=== PATIENT | female | born 2000 | race Two or more races ===

== ENCOUNTER 2018-01-12 02:53 | Inpatient (IN) | payer BC ==
[~2018-01-12] VITALS: Ht 160 cm; Wt 46.9 kg
[2018-01-12 03:27] LABS: BASOPHILS % (AUTO) 0.6 % (0.0-2.0); EOSINOPHILS % (AUTO) 0.4 % (1.0-6.0); HEMATOCRIT 38.5 % (36-46); HEMOGLOBIN 13.6 g/dL (12.0-16.0); LYMPHOCYTES # (AUTO) 2.6 K/uL (1.0-4.8); LYMPHOCYTES % (AUTO) 24.6 % (22.0-44.0); MEAN CORPUSCULAR HEMOGLOBIN 30.9 pg (26.0-34.0); MEAN CORPUSCULAR HGB CONC 35.4 G/dL (31.0-37.0); MEAN CORPUSCULAR VOLUME 87 fL (80-100); MONOCYTES # (AUTO) 0.6 K/uL (0.1-1.0); MONOCYTES % (AUTO) 5.4 % (2.0-9.0); NEUTROPHILS # (AUTO) 7.2 K/uL (1.8-7.7); PLATELET COUNT (AUTO) 225 K/uL (150-450); RED BLOOD CELL COUNT(AUTO) 4.41 MIL/uL (4.00-5.20); RED CELL DISTRIBUTION WIDTH 12.8 % (11.5-14.5)
[2018-01-12 03:36] LABS: ANION GAP 8 mmol/L (8-16); CALCIUM, TOTAL 9.1 mg/dL (8.8-10.5); CARBON DIOXIDE 27 mmol/L (22-29); CHLORIDE 104 mmol/L (98-107); CREATININE 0.89 mg/dL (0.60-1.30); GLOMERULAR FILTR. RATE CALC > 60 mL/min (>60); GLUCOSE,RANDOM 112 mg/dL (70-110); POTASSIUM 4.3 mmol/L (3.5-5.1); SODIUM SERUM 139 mmol/L (136-145); UREA NITROGEN, BLOOD 9 mg/dL (7-18)
[2018-01-12 03:41] LABS: ALANINE AMINOTRANSFERASE 17 U/L (12-78); ALBUMIN 4.6 g/dL (3.4-5.0); ALKALINE PHOSPHATASE 76 U/L (46-116); ASPARTATE AMINOTRANSFERASE 15 U/L (15-37); TOTAL PROTEIN, SERUM 8.2 g/dL (6.4-8.2)
[2018-01-12] MEDS ORDERED: LIDOCAINE HCL 1%/EPI 1:200,000/PF 30 ML VIAL INJ ONE (04:15)
[2018-01-12] MEDS ORDERED: LIDOCAINE HCL 1%/EPI 1:200,000/PF 30 ML VIAL PERC ONE (04:30)
[2018-01-12] MEDS ORDERED: HALOPERIDOL 5 MG TABLET PO PRN (04:30)
[2018-01-12 06:35] LABS: AMPHET/METH SCREEN,URINE NEGATIVE (NEGATIVE); BARBITURATE SCREEN, URINE NEGATIVE (NEGATIVE); BENZODIAZEPINES SCREEN,URINE NEGATIVE (NEGATIVE); CANNABINOID SCREEN,URINE POSITIVE (NEGATIVE); COCAINE SCREEN,URINE NEGATIVE (NEGATIVE); METHADONE SCREEN, URINE NEGATIVE (NEGATIVE); OPIATE SCREEN,URINE NEGATIVE (NEGATIVE)
[2018-01-12 06:45] LABS: PHENCYCLIDINE SCREEN,URINE NEGATIVE (NEGATIVE)
[2018-01-12] MEDS: LORazepam 2 MG TABLET PO PRN ×2 (09:37→17:41)
[2018-01-12 10:00] VITALS: BP 121/79
[2018-01-12 16:20] VITALS: BP 125/77
[2018-01-12] MEDS: ZOLPIDEM TARTRATE 10 MG TABLET PO PRN (20:35)
[2018-01-12] MEDS: SERTRALINE HCL 50 MG TABLET PO SCH (20:35)
[2018-01-13 05:54] VITALS: BP 120/88
[2018-01-13] MEDS: LORazepam 2 MG TABLET PO PRN ×2 (08:13→17:30)
[2018-01-13] MEDS: SERTRALINE HCL 50 MG TABLET PO SCH (08:13)
[2018-01-13 08:30] LABS: CHOL/HDL RATIO 2.5 (3.9-5.7)
[2018-01-13 08:34] VITALS: BP 132/70
[2018-01-13 16:38] VITALS: BP 127/75
[2018-01-14 06:30] VITALS: BP 122/72
[2018-01-14 08:55] VITALS: BP 117/75
[2018-01-14] MEDS: SERTRALINE HCL 50 MG TABLET PO SCH (09:57)
[2018-01-14] MEDS ORDERED: ONDANSETRON HCL 4 MG TABLET PO PRN (12:45)
[2018-01-14 16:00] VITALS: BP 113/71
[2018-01-14] MEDS: LORazepam 2 MG TABLET PO PRN (20:12)
[2018-01-15 06:19] VITALS: BP 141/77
[2018-01-15] MEDS: SERTRALINE HCL 50 MG TABLET PO SCH (08:24)
[2018-01-15 09:04] VITALS: BP 127/56
[2018-01-15] MEDS: LORazepam 2 MG TABLET PO PRN (16:17)
[2018-01-15 16:23] VITALS: BP 143/80
[2018-01-15] MEDS: ZOLPIDEM TARTRATE 10 MG TABLET PO PRN (20:57)
[2018-01-15] MEDS ORDERED: SERT50TA12 PO (22:54)
== END 2018-01-15 23:35 | disposition home or self-care (01) | DRG 885 ==
LOC: EMS 02:54 → B2S 04:00 → B3A 11:37
PROVIDERS: ADMIT Psychiatry & Neurology Psychiatry; ATTEND Psychiatry & Neurology Psychiatry
PROC: 0HQDXZZ Repair Right Lower Arm Skin, External Approach (ICD-10-PCS; principal; 2018-01-12)
DX: F33.2 Major depressive disorder, recurrent severe without psychotic features (principal); E44.1 Mild protein-calorie malnutrition; Z68.1 Body mass index [BMI] 19.9 or less, adult; G47.00 Insomnia, unspecified; F41.9 Anxiety disorder, unspecified; F60.3 Borderline personality disorder; S51.812A Laceration without foreign body of left forearm, initial encounter; S51.811A Laceration without foreign body of right forearm, initial encounter; F12.90 Cannabis use, unspecified, uncomplicated; F19.10 Other psychoactive substance abuse, uncomplicated; R45.87 Impulsiveness; Z91.5 Personal history of self-harm; X78.9XXA Intentional self-harm by unspecified sharp object, initial encounter; Y92.9 Unspecified place or not applicable
CPT/HCPCS: 12002; 99285; G0480; J3490; Q0162

== ENCOUNTER 2018-01-21 10:49 | Inpatient (IN) | payer BC ==
[~2018-01-21] VITALS: Ht 160 cm; Wt 46.5 kg
[~2018-01-21 10:49] MED LIST: SERT50TA12 PO
[2018-01-21 11:11] VITALS: BP 114/78
[2018-01-21] MEDS ORDERED: MAGNESIUM HYDROXIDE SUSPENSION 30 ML UDCUP PO PRN (11:30)
[2018-01-21] MEDS ORDERED: MAG HYDROX/AL HYDROX/SIMETH ES 30 ML SUSPENSION UDCUP PO PRN ×2 (11:30→15:00)
[2018-01-21] MEDS ORDERED: ACETAMINOPHEN 325 MG TABLET PO PRN ×2 (11:30→15:00)
[2018-01-21] MEDS: SERTRALINE HCL 50 MG TABLET PO SCH (12:29)
[2018-01-21 12:55] VITALS: BP 109/61
[2018-01-21] MEDS ORDERED: IBUPROFEN 400 MG TABLET PO PRN (15:00)
[2018-01-21] MEDS ORDERED: ONDANSETRON HCL 4 MG TABLET PO PRN (15:00)
[2018-01-21] MEDS ORDERED: ALBUTEROL SULFATE HFA 90 MCG/PUFF 8 GM INHALER IH PRN (15:00)
[2018-01-21] MEDS ORDERED: PETROLATUM,WHITE 71 GM JELLY TP PRN (15:00)
[2018-01-21] MEDS ORDERED: DOCUSATE SODIUM 100 MG CAPSULE PO PRN (15:00)
[2018-01-21 16:10] VITALS: BP 105/69
[2018-01-21] MEDS: LORazepam 1 MG TABLET PO PRN (20:06)
[2018-01-21] MEDS: MAGNESIUM HYDROXIDE SUSPENSION 30 ML UDCUP PO PRN (20:06)
[2018-01-21] MEDS: ZOLPIDEM TARTRATE 10 MG TABLET PO PRN (21:07)
[2018-01-22 06:17] VITALS: BP 119/70
[2018-01-22 08:27] VITALS: BP 118/60
[2018-01-22] MEDS: SERTRALINE HCL 50 MG TABLET PO SCH (08:38)
[2018-01-22] MEDS: BACITRACIN 28.4 GM OINTMENT TP SCH ×2 (08:39→16:39)
[2018-01-22 08:46] LABS: BASOPHILS % (AUTO) 0.6 % (0.0-2.0); EOSINOPHILS % (AUTO) 1.9 % (1.0-6.0); HEMATOCRIT 37.2 % (36-46); HEMOGLOBIN 13.3 g/dL (12.0-16.0); LYMPHOCYTES # (AUTO) 2.3 K/uL (1.0-4.8); LYMPHOCYTES % (AUTO) 32.9 % (22.0-44.0); MEAN CORPUSCULAR HEMOGLOBIN 30.9 pg (26.0-34.0); MEAN CORPUSCULAR HGB CONC 35.7 G/dL (31.0-37.0); MEAN CORPUSCULAR VOLUME 87 fL (80-100); MONOCYTES # (AUTO) 0.4 K/uL (0.1-1.0); MONOCYTES % (AUTO) 5.1 % (2.0-9.0); NEUTROPHILS # (AUTO) 4.2 K/uL (1.8-7.7); NEUTROPHILS % (AUTO) 59.5 % (40.0-70.0); PLATELET COUNT (AUTO) 191 K/uL (150-450); RED CELL DISTRIBUTION WIDTH 13.1 % (11.5-14.5)
[2018-01-22] MEDS ORDERED: NICOTINE 14 MG/24 HOUR PATCH TD SCH (09:00)
[2018-01-22 09:10] LABS: ALANINE AMINOTRANSFERASE 20 U/L (12-78); ALKALINE PHOSPHATASE 66 U/L (46-116); ANION GAP 4 mmol/L (8-16); ASPARTATE AMINOTRANSFERASE 15 U/L (15-37); BILIRUBIN,TOTAL 0.8 mg/dL (0.1-1.0); CALCIUM, TOTAL 8.7 mg/dL (8.8-10.5); CARBON DIOXIDE 29 mmol/L (22-29); CHLORIDE 104 mmol/L (98-107); CHOL/HDL RATIO 2.3 (3.9-5.7); CHOLESTEROL 119 mg/dL (131-200); CREATININE 0.74 mg/dL (0.60-1.30); FREE T4 (FREE THYROXINE) 1.07 ng/dL (0.76-1.46); GLOMERULAR FILTR. RATE CALC > 60 mL/min (>60); GLUCOSE,RANDOM 74 mg/dL (70-110); HCG,QUANTITATIVE < 1 mIU/mL (0-6); HDL CHOLESTEROL 52 mg/dL (40-60); LDL CHOL (CALC.) 57 mg/dL (0-130); POTASSIUM 4.1 mmol/L (3.5-5.1); SODIUM SERUM 137 mmol/L (136-145); THYROID STIMULATING HORMONE 0.82 uIU/mL (0.36-3.74); TOTAL PROTEIN, SERUM 7.3 g/dL (6.4-8.2); TRIGLYCERIDES 52 mg/dL (15-150); UREA NITROGEN, BLOOD 6 mg/dL (7-18)
[2018-01-22] MEDS: LORazepam 1 MG TABLET PO PRN ×2 (12:40→20:19)
[2018-01-22 16:14] VITALS: BP 115/61
[2018-01-22] MEDS: ZOLPIDEM TARTRATE 10 MG TABLET PO PRN (21:16)
[2018-01-23 00:17] VITALS: BP 114/66
[2018-01-23] MEDS: SERTRALINE HCL 100 MG TABLET PO SCH (08:13)
[2018-01-23] MEDS: BACITRACIN 28.4 GM OINTMENT TP SCH ×2 (08:14→16:37)
[2018-01-23 08:32] VITALS: BP 103/60
[2018-01-23 08:58] LABS: AMPHET/METH SCREEN,URINE NEGATIVE (NEGATIVE); BARBITURATE SCREEN, URINE NEGATIVE (NEGATIVE); BENZODIAZEPINES SCREEN,URINE NEGATIVE (NEGATIVE); CANNABINOID SCREEN,URINE POSITIVE (NEGATIVE); COCAINE SCREEN,URINE NEGATIVE (NEGATIVE); METHADONE SCREEN, URINE NEGATIVE (NEGATIVE); OPIATE SCREEN,URINE NEGATIVE (NEGATIVE)
[2018-01-23 09:00] LABS: PHENCYCLIDINE SCREEN,URINE NEGATIVE (NEGATIVE)
[2018-01-23 09:08] LABS: APPEARANCE,URINE CLEAR (CLEAR); BILIRUBIN,URINE NEGATIVE (NEGATIVE); GLUCOSE, URINE (UA) NEGATIVE (NEGATIVE); KETONES,URINE NEGATIVE (NEGATIVE); LEUKOCYTE ESTERASE ,URINE NEGATIVE (NEGATIVE); NITRATE,URINE NEGATIVE (NEGATIVE); OCCULT BLOOD,URINE NEGATIVE (NEGATIVE); PH,URINE 7.5 (5.0-8.0); PROTEIN,URINE NEGATIVE (NEGATIVE); UROBILINOGEN,URINE 0.2 mg/dL (<=1.0)
[2018-01-23 12:23] VITALS: BP 120/71
[2018-01-23] MEDS: LORazepam 1 MG TABLET PO PRN (12:23)
[2018-01-23 16:12] VITALS: BP 118/78
[2018-01-23] MEDS: MAGNESIUM HYDROXIDE SUSPENSION 30 ML UDCUP PO PRN (17:08)
[2018-01-23] MEDS: ZOLPIDEM TARTRATE 10 MG TABLET PO PRN (21:14)
[2018-01-24 01:12] VITALS: BP 106/63
[2018-01-24 04:06] VITALS: BP 119/76
[2018-01-24] MEDS: LORazepam 1 MG TABLET PO PRN ×2 (04:09→17:25)
[2018-01-24 08:09] VITALS: BP 115/75
[2018-01-24] MEDS: SERTRALINE HCL 100 MG TABLET PO SCH (08:35)
[2018-01-24] MEDS: BACITRACIN 28.4 GM OINTMENT TP SCH ×2 (08:35→16:18)
[2018-01-24 16:07] VITALS: BP 118/73
[2018-01-24] MEDS: MAGNESIUM HYDROXIDE SUSPENSION 30 ML UDCUP PO PRN (17:25)
[2018-01-24] MEDS: ZOLPIDEM TARTRATE 10 MG TABLET PO PRN (21:17)
[2018-01-25 02:04] VITALS: BP 109/64
[2018-01-25 07:58] VITALS: BP 109/69
[2018-01-25] MEDS: BACITRACIN 28.4 GM OINTMENT TP SCH (08:10)
[2018-01-25] MEDS ORDERED: SERTRALINE HCL 100 MG TABLET PO SCH (09:00)
[2018-01-25 09:11] VITALS: BP 109/69
== END 2018-01-25 10:10 | disposition home or self-care (01) | DRG 885 ==
LOC: B2X 11:39
PROVIDERS: ADMIT Psychiatry & Neurology Psychiatry; ATTEND Psychiatry & Neurology Psychiatry
DX: F33.2 Major depressive disorder, recurrent severe without psychotic features (principal); R45.851 Suicidal ideations; F60.3 Borderline personality disorder; F12.10 Cannabis abuse, uncomplicated; E83.51 Hypocalcemia; F41.9 Anxiety disorder, unspecified; G47.00 Insomnia, unspecified; Z79.899 Other long term (current) drug therapy; Z91.5 Personal history of self-harm; Z71.51 Drug abuse counseling and surveillance of drug abuser
CPT/HCPCS: 80307; 83036; 84439; 84443; 87081